=== PATIENT | male | born 1960 | race Caucasian/White ===

== ENCOUNTER 2018-05-12 07:07 | Day surgery (SDC) | payer OTHER ==
[2018-05-12] MEDS ORDERED: Lactated Ringer's 500 ML IV ONE (07:25)
[2018-05-12] MEDS ORDERED: Propofol 10 mg/ml Inj (20 ML) ONE (07:40)
[2018-05-12 09:53] VITALS: TEMP 97
[2018-05-12 10:23] VITALS: BP 107/74; PULSE 62; RESP 14; O2SAT 99
== END 2018-05-12 12:13 | disposition home or self-care (01) ==
LOC: H.ENDO 07:07
PROVIDERS: ATTEND Internal Medicine Gastroenterology
DX: Z12.11 Encounter for screening for malignant neoplasm of colon (principal); G47.33 Obstructive sleep apnea (adult) (pediatric); K20.9 Esophagitis, unspecified; K44.9 Diaphragmatic hernia without obstruction or gangrene; K31.89 Other diseases of stomach and duodenum
CPT/HCPCS: 43239; 45378; 88305; J2001; J2704; J7120

== ENCOUNTER 2018-09-29 07:41 | Emergency (ER) | payer OTHER ==
[2018-09-29 07:44] VITALS: BMI 28.7
[2018-09-29] MEDS ORDERED: Oxycodone/Acetaminophen 5/325 mg Tab PO ONE (08:30)
--- NOTE | 2018-09-29 08:39 | ED PDOC ---
HPI: Back Time Seen by Provider: 09/29/18 07:59 Chief Complaint (Nursing): Back Pain Chief Complaint (Provider): Back Pain History Per: Patient History/Exam Limitations: no limitations Onset/Duration Of Symptoms: Days (x1) Current Symptoms Are (Timing): Still Present Additional Complaint(s): 57 year old male with no past medical history who is presenting to the ED for evaluation of left buttock pain onset yesterday. Patient states that he was driving for about 4 hours yesterday and was sitting on his wallet which was pressing into his buttock, when he developed non-radiating left buttock pain. He reports that the pain is worse with sitting, walking, or palpation and admits that he was not able to sleep last night due to pain. Patient reports that he took Motrin last night for pain but states that he has not taken any medications today. He denies any numbness, weakness, or any other medical complaints at this time. Of note, patient admits that he was here 1.5 years ago for similar complaints. PMD: Dr. Hunt [place] Past Medical History Reviewed: Historical Data, Nursing Documentation, Vital Signs Vital Signs: Last Vital Signs Temp 98.5 F 09/29/18 07:44 Pulse 80 09/29/18 07:44 Resp 17 09/29/18 07:44 BP 110/73 09/29/18 07:44 Pulse Ox 96 09/29/18 07:44 - Medical History PMH: No Chronic Diseases - Surgical History Other surgeries: eye surgery - Family History Family History: States: Unknown Family Hx - Social History Current smoker - smoking cessation education provided: No Alcohol: None Drugs: Denies - Home Medications Home Medications: Ambulatory Orders Medication Instructions Recorded Cyclobenzaprine [Cyclobenzaprine 10 mg PO TID #15 tab 09/29/18 HCl] Naproxen 500 mg PO BID #20 tab 09/29/18 - Allergies Allergies/Adverse Reactions: Allergies Allergy/AdvReac Type Severity Reaction Status Date / Time No Known Allergies Allergy Verified 09/15/15 20:49 Review of Systems ROS Statement: Except As Marked, All Systems Reviewed And Found Negative Musculoskeletal: Positive for: Back Pain (with buttock pain ). Negative for: Leg Pain Neurological: Negative for: Weakness, Numbness Physical Exam - Reviewed Nursing Documentation Reviewed: Yes Vital Signs Reviewed: Yes - Physical Exam Appears: Positive for: Non-toxic, No Acute Distress Head Exam: Positive for: ATRAUMATIC, NORMAL INSPECTION, NORMOCEPHALIC Skin: Positive for: Normal Color, Warm, DRY Back: Positive for: Normal Inspection, Other (tenderness to left lower buttock, point tenderness to sciatic notch trigger point area). Negative for: L CVA Tenderness, R CVA Tenderness, Vertebral Tenderness Extremity: Positive for: Normal ROM Neurological/Psych: Positive for: Awake, Alert, Normal Tone, Oriented. Negative for: Motor/Sensory Deficits - ECG O2 Sat by Pulse Oximetry: 96 (RA) Pulse Ox Interpretation: Normal - Progress Re-evaluation Time: :46 Condition: Re-examined, Improved Medical Decision Making Medical Decision Making: Time: 8:30 Impression: sciatic pain, sciatic neuropathy Plan: --Toradol 30 mg IM Scribe Attestation: Documented by Martine Peterson, acting as a scribe for Consuelo Grullon MD. Provider Scribe Attestation: All medical record entries made by the Scribe were at my direction and personally dictated by me. I have reviewed the chart and agree that the record accurately reflects my personal performance of the history, physical exam, medical decision making, and the department course for this patient. I have also personally directed, reviewed, and agree with the discharge instructions and disposition. Disposition - Clinical Impression Clinical Impression: Sciatica neuralgia - Patient ED Disposition Is Patient to be Admitted: No Doctor Will See Patient In The: Office Counseled Patient/Family Regarding: Studies Performed, Diagnosis, Need For Followup - Disposition Disposition: Routine/Home Disposition Time: :46 Condition: GOOD Additional Instructions: BRAYAN ESCALONA, thank you for letting us take care of you today. Your provider was Consuelo Grullon MD and you were treated for LOWER BACK PAIN. The emergency medical care you received today was directed at your acute symptoms. If you were prescribed any medication, please fill it and take as directed. It may take several days for your symptoms to resolve. Return to the Emergency Department if your symptoms worsen, do not improve, or if you have any other problems. Please contact your doctor or call one of the physicians/clinics you have been referred to that are listed on the Patient Visit Information form that is included in your discharge packet. Bring any paperwork you were given at discharge with you along with any medications you are taking to your follow up visit. Our treatment cannot replace ongoing medical care by a primary care provider outside of the emergency department. Thank you for allowing the [facility] team to be part of your care today. Prescriptions: Cyclobenzaprine [Cyclobenzaprine HCl] 10 mg PO TID #15 tab Naproxen 500 mg PO BID #20 tab Instructions: Sciatica (DC)
[2018-09-29 09:53] VITALS: BP 127/78; PULSE 78; RESP 19; TEMP 97.6; O2SAT 98
== END 2018-09-29 09:54 | disposition home or self-care (01) ==
LOC: H.ER 07:41
DX: M54.32 Sciatica, left side (principal)
CPT/HCPCS: 96372; 99282; J1885